=== PATIENT | male | born 1990 | race Caucasian/White ===

== ENCOUNTER 2019-12-13 21:41 | Emergency (ER) | payer BC, OTHER ==
[~2019-12-13] VITALS: Ht 193 cm; Wt 81.6 kg
[2019-12-13 21:58] VITALS: BP 112/66
[2019-12-14] MEDS ORDERED: LIDOCAINE 1% HCL (LOCAL ANESTH.) INJ 20ML MDV IJ ONE (01:00)
== END 2019-12-14 01:23 | disposition home or self-care (01) ==
LOC: ER 21:41
DX: S61.213A Laceration without foreign body of left middle finger without damage to nail, initial encounter (principal); W25.XXXA Contact with sharp glass, initial encounter; Y93.89 Activity, other specified; Y92.89 Other specified places as the place of occurrence of the external cause; Y99.8 Other external cause status
CPT/HCPCS: 12002; 73140; 99283; J2001